=== PATIENT | male | born 1970 | race Caucasian/White ===

== ENCOUNTER → 2018-07-29 13:39 | Outpatient (REF) | payer OTHER, SELFPAY | LOC: LAB 13:39 | PROVIDERS: Family Provider Family Medicine; PCP Family Medicine; Visit Provider Otolaryngology | DX: J04.0 Acute laryngitis (principal) | CPT/HCPCS: 87070 ==

== ENCOUNTER → 2018-11-12 07:41 | Outpatient (CLI) | payer OTHER, SELFPAY ==
[2018-11-14 16:55] LABS: Sex Hormone Binding Globulin 71 nmol/L (10-50); Testosterone, Bioavailable 76.4 ng/dL (110.0-575.0); Testosterone, Total 535 ng/dL (250-1100); Testosterone,Free 36.4 pg/mL (46.0-224.0)
[2018-11-19 11:39] LABS: Albumin 4.6
== END ==
PROVIDERS: Family Provider Family Medicine; PCP Family Medicine; Visit Provider Nurse Practitioner
DX: R53.83 Other fatigue (principal)
CPT/HCPCS: 36415; 82040; 84270; 84403

== ENCOUNTER → 2019-03-18 09:23 | Outpatient (CLI) | payer OTHER, SELFPAY ==
[2019-03-18 11:22] LABS: Thyroid Stimulating Hormone 1.84 uIU/mL (0.47-4.68)
== END ==
PROVIDERS: PCP Family Medicine; Visit Provider Otolaryngology
DX: C09.9 Malignant neoplasm of tonsil, unspecified (principal)
CPT/HCPCS: 36415; 84443

== ENCOUNTER → 2024-04-16 13:45 | Outpatient (CLI) | payer OTHER, SELFPAY ==
--- NOTE | 2024-04-16 13:45 | DI.MRI.S_ITS ---
PROCEDURE: MR KNEE LT WO CON INDICATIONS: INTERNAL DERANGEMENT OF LEFT KNEE TECHNIQUE: Noncontrast sagittal PD fast spin echo and T2 fast spin echo with fat saturation, sagittal 3-D FLASH with fat saturation; coronal T1 spin echo and PD fast spin echo with fat saturation, and axial PD fast spin echo with fat saturation through the knee. COMPARISON: [facility] [place], CR, XR KNEE 4+ VIEWS LEFT, 03/05/2024, 14:09. FINDINGS: Image quality: Excellent. Menisci: In the medial meniscus, there is incomplete radial tear of the posterior horn (series 6, image 11). There is mild intrasubstance degeneration of the posterior horn of the medial meniscus. There is mild extrusion of the medial meniscus body. The lateral meniscus is unremarkable. Cruciate ligaments: The anterior and posterior cruciate ligaments appear intact. Medial structures: The MCL is intact. Moderate tendinosis of the distal semimembranosus. Lateral structures: The biceps femoris tendon is intact. Small ossification at the distal insertion of fibular collateral ligament, present in prior injury. The popliteus tendon is unremarkable. The iliotibial band is intact. Anterior structures: The quadriceps and patellar tendons appear intact. Patellar alignment is normal. No femoral trochlear dysplasia or ventral trochlear prominence. No edema in the infrapatellar fat pad. Bones and cartilage: There is mild chondral irregularity in the medial patellar facet. Cartilage of the trochlea is unremarkable. In the medial compartment, there is mild chondral irregularity in the weight-bearing portion of the femoral condyle. In the lateral compartment, the cartilage is well maintained. No acute fracture. Joint space: Small knee effusion. Small popliteal cyst. IMPRESSION: 1. Tear of the medial meniscus. 2. Moderate tendinosis of the distal semimembranosus. 3. Mild chondrosis of the patellofemoral and the medial compartment. 4. Small popliteal cyst. Dictated by: Sophia Mccray M.D. on 04/17/2024 at 11:40 Approved by: Sophia Mccray M.D. on 04/17/2024 at 11:47
== END ==
LOC: MRI 13:45
PROVIDERS: PCP Family Medicine; Referring Provider Orthopaedic Surgery; Visit Provider Orthopaedic Surgery
DX: S83.242A Other tear of medial meniscus, current injury, left knee, initial encounter (principal); M22.42 Chondromalacia patellae, left knee; M71.22 Synovial cyst of popliteal space [Baker], left knee; M23.92 Unspecified internal derangement of left knee
CPT/HCPCS: 73721